=== PATIENT | male | born 2005 | race Caucasian/White ===

== ENCOUNTER 2025-08-28 09:18 | Emergency (ER) | payer OTHER, SELFPAY ==
[2025-08-28 09:19] VITALS: BP 146/84; PULSE 103; RESP 16; TEMP 37; O2SAT 99
[2025-08-28 09:21] VITALS: BP 146/84; PULSE 103; RESP 16; TEMP 37; O2SAT 99
--- NOTE | 2025-08-28 10:46 | EX.ED.DYSGE1 ---
HPI History of Present Illness Chief Complaint: Cellulitis Informant: patient Onset/Context/Timing Onset: Days (3) Context: Gradual Onset Timing: Continuous Quality: Aching Location: Right ring finger Worsened by: Nothing Relieved by: Straightening his finger Narrative Narrative: Patient presents with redness and swelling to his right ring finger that has been getting worse over the past 3 days. Patient states he was poked in his finger by something at work. Patient states the puncture wound was on the ulnar aspect of the ring finger near the PIP joint patient states it did not bleed. Patient is right-hand dominant. Patient states the swelling has gotten progressively worse. Patient describes the pain as aching. Patient states it is actually better when he straightens it out. Patient states nothing makes it worse. Patient denies any paresthesias or weakness. Patient is unsure of his last tetanus. Patient states he went to urgent care. Patient states he was referred to the emergency department due to the possibility of flexor tenosynovitis. PFSH PFS Medical History no medical history no medical history Home Medications ?Medication ?Instructions ?Recorded ?Last Taken ?Type cephalexin 500 mg capsule 500 mg PO Q6 #40 CAPSULES 08/28/25 Unknown Rx Allergy/AdvReac Type Severity Reaction Status Date / Time No Known Allergies Allergy Verified 08/28/25 09:21 Surgical History no surgical history no surgical history Social History (Updated 08/28/25 @ 10:[address] Kit Najera, DO) Electronic Cigarette Use: with nicotine ROS ROS ED Constitutional Constitutional ED: Denies chills or fever(s) Eyes Eyes: Denies blurry vision or change in vision ENT ENT ED: Reports rhinorrhea; Denies sore throat Cardiovascular Cardiovascular: Denies chest pain or palpitations Respiratory/Chest Respiratory/Chest: Denies cough or dyspnea Gastrointestinal Gastrointestinal: Denies nausea or vomiting Genitourinary Genitourinary ED: Denies dysuria or hematuria Musculoskeletal Musculoskeletal: Denies back pain or neck pain Integumentary Denies abscess or rash Neurologic Neurologic: Denies headache(s) or weakness Allergic/Immunologic Allergic/Immunologic ED: Denies mouth swelling or urticaria EXAM Physical Exam Const Vital Signs: 08/28/25 09:19 08/28/25 09:21 Temperature 98.6 F 98.6 F Temperature Source Oral Oral Pulse Rate 103 H 103 H Respiratory Rate 16 16 Blood Pressure 146/84 H 146/84 H Blood Pressure Mean 104 104 Pulse Ox 99 99 Oxygen Delivery Method Room Air Room Air Positive well nourished and well developed General Appearance ED: well developed and NAD HEENT Reports moist mucous membranes Neck supple and no JVD Extremity Extremity Narrative: There is edema, erythema, and warmth over the right ring finger over the middle and proximal phalanges. There is no erythema or edema of the distal phalanx. There is no tenderness over the palmar aspect of the right hand along the flexor tendon of the ring finger. There is no pain with complete extension of the ring finger. There is a small puncture wound noted over the ulnar/dorsal aspect of the middle phalanx of the right ring finger near the PIP joint. There is no bleeding noted. Sensation was intact to light touch in all digits. Capillary refill was less than 2 seconds in all digits. Neuro oriented x3, CN's II-XII intact bilaterally and no sensory deficits noted Sensorium / Orientation: alert Motor Exam: strength 5/5 throughout Psych mental status grossly normal MDM MDM MDM Narrative Medical decision making narrative: Patient was advised that this is a local cellulitis of his ring finger. Since the patient does not have pain with extension, fusiform swelling of the digit, or tenderness over the flexor tendon, I do not feel that this is flexor tenosynovitis. Patient was given a dose of Keflex here. Patient was given a prescription for Keflex. Patient was given a tetanus booster. Patient was instructed to follow-up with his primary care physician in 5 to 7 days. Patient understood and was agreeable with the plan. All questions were answered. Discharge Plan Triage Chief Complaint: Cellulitis ED Provider: Kit Najera Dx/Rx/DC Orders Clinical Impression: Cellulitis of right ring finger, Puncture wound of right ring finger Instructions: ED Cellulitis, ED Puncture Wound (General) Prescriptions: New cephalexin 500 mg capsule 500 mg PO Q6 Qty: 40 0RF Primary Care Provider: Care Physician,No Primary Referrals: Care Physician,No Primary [Primary Care Provider, Medical] Clinic,[facility] [Non-Staff, None] - 5-7 Days Print Language: Romansh Disposition Disposition: Home, Self Care
[2025-08-28 11:14] VITALS: BP 119/81; PULSE 87; RESP 16; TEMP 37; O2SAT 99
[2025-08-28 11:18] VITALS: BP 119/81
[2025-08-28 11:21] VITALS: BP 119/81; PULSE 87; RESP 16; TEMP 37; O2SAT 99
== END 2025-08-28 11:21 | disposition home or self-care (01) ==
PROVIDERS: Emergency Provider Emergency Medicine; Visit Provider Emergency Medicine
DX: L03.011 Cellulitis of right finger (principal); S61.234A Puncture wound without foreign body of right ring finger without damage to nail, initial encounter; F17.290 Nicotine dependence, other tobacco product, uncomplicated; X58.XXXA Exposure to other specified factors, initial encounter
CPT/HCPCS: 90715; 99282